=== PATIENT | female | born 1980 | race Asian ===

== ENCOUNTER 2019-12-20 23:18 | Emergency (ER) | payer OTHER ==
--- NOTE | 2019-12-21 00:39 | ED ---
- HPI Summary HPI Summary: Patient with history of 10 weeks by home test complains of intermittent mild bright red vaginal bleeding starting 2 hours ago. Denies pain , fever, N/V, any other symptoms or injury. First appointment with [facility] as this Friday. Medical history is none. - History of Current Complaint Chief Complaint: EDOBProblems Stated Complaint: PREG/BLEEDING PER PT Time Seen by Provider: 12/21/19 00:31 Hx Obtained From: Patient Onset/Duration: Started Hours Ago Timing: Intermittent, Lasting Minutes Current Severity: None Pain Intensity: 0 Location of Pain: None Aggravating Factors: Nothing Associated Signs and Symptoms: Positive: Vaginal Bleeding or Discharge - Allergies/Home Medications Allergies/Adverse Reactions: Allergies Allergy/AdvReac Type Severity Reaction Status Date / Time No Known Allergies Allergy Verified 12/20/19 23:23 Home Medications: Home Medications Pnv No.95/Ferrous Fum/Folic AC [ Caplet] 1 tab PO DAILY 12/21/19 [ History Confirmed 12/21/19] PMH/Surg Hx/FS Hx/Imm Hx Endocrine/Hematology History: Denies: Hx Anticoagulant Therapy Cardiovascular History: Denies: Hx Pacemaker/ICD Respiratory History: Denies: Hx Chronic Obstructive Pulmonary Disease (COPD) History: Denies: Hx Dialysis Sensory History: Denies: Hx Eye Prosthesis Opthamlomology History: Denies: Hx Legally Blind EENT History: Denies: Hx Deafness Neurological History: Denies: Hx Dementia Infectious Disease History: No Infectious Disease History: Denies: Traveled Outside the [place] in Last 30 Days - Family History Known Family History: Positive: Non-Contributory - Social History Alcohol Use: None Hx Substance Use: No Hx Tobacco Use: No Review of Systems Constitutional: Negative Eyes: Negative ENT: Negative Cardiovascular: Negative Respiratory: Negative Gastrointestinal: Negative Positive: other Musculoskeletal: Negative Skin: Negative Neurological/Mental Status: Negative Psychological: Normal All Other Systems Reviewed And Are Negative: Yes Physical Exam - Physical Exam Triage Information Reviewed: Yes Vital Signs Reviewed: Yes Appearance: Positive: Well-Appearing Skin: Positive: Warm Head/Face: Positive: Normal Head/Face Inspection Eyes: Positive: Normal Neck: Positive: Supple Respiratory/Lung Sounds: Positive: Clear to Auscultation Cardiovascular: Positive: Normal Abdomen Description: Positive: Nontender Musculoskeletal: Positive: Normal Neurological: Positive: Normal Psychiatric: Positive: Normal AVPU Assessment: Alert - Livier Coma Scale Eye: 4 - Spontaneous Motor: 6 - Obeys Commands Verbal: 5 - Oriented Coma Scale Total: 15 Procedures - Sedation Patient Received Moderate/Deep Sedation with Procedure: No Diagnostics - Vital Signs Vital Signs Temp Pulse Resp BP Pulse Ox 12/20/19 23:21 98.5 F 75 15 120/67 100 - Laboratory Result Diagrams: 12/21/19 00:51 12/21/19 00:51 Lab Statement: Any lab studies that have been ordered have been reviewed, and results considered in the medical decision making process. Course/Dx - Course Course Of Treatment: Patient with history of 10 weeks by home test complains of intermittent mild bright red vaginal bleeding starting 2 hours ago. Denies pain, fever, N/V, any other symptoms or injury. First appointment with [facility] as this Friday. Medical history is none. . Vital signs within normal limits. - Diagnoses Provider Diagnoses: , Vaginal bleeding Discharge ED - Sign-Out/Discharge Documenting (check all that apply): Patient Departure - Discharge Plan Condition: Stable Disposition: HOME Patient Education Materials: (ED) Referrals: No Primary Care Phys,NOPCP [Primary Care Provider] - Additional Instructions: Follow-up with [facility] at your appointment this Friday in 3 days for repeat hCG and further evaluation of . Return to the ED for any new or worsening symptoms. - Billing Disposition and Condition Condition: STABLE Disposition: Home
[2019-12-21 01:00] LABS: ABS Basophils 0.1 10^3/ul (0-0.2); ABS Lymphocytes 2.1 10^3/ul (1.0-4.8); ABS Monocytes 0.7 10^3/ul (0-0.8); Eosinophil % 0.3 %; Hematocrit 30 % (35-47); Hemoglobin 10.8 g/dL (12.0-16.0); Lymphocyte % 19.1 %; Mean Corpuscular HGB Conc 35 g/dL (31-36); Mean Corpuscular Hemoglobin 34 pg (27-31); Mean Corpuscular Volume 95 fL (80-97); Mean Platelet Volume 7.4 fL (7.4-10.4); Platelet Count 281 10^3/uL (150-450); Red Cell Distribution Width 13 % (10-15); White Blood Count 10.8 10^3/uL (3.5-10.8)
[2019-12-21 01:18] LABS: Albumin 4.1 g/dL (3.2-5.2); Albumin/Globulin Ratio 1.5 (1-3); BUN/Creatinine Ratio 28.6 (8-20); C Reactive Protein 3.74 mg/L (<8.01); Calcium 9.4 mg/dL (8.6-10.3); EGFR African American 147.4 (>60); EGFR Non-African American 121.8 (>60); Globulin 2.7 g/dL (2-4); Potassium 3.9 mmol/L (3.5-5.0); Total Bilirubin 0.3 mg/dL (0.2-1.0); Total Protein 6.8 g/dL (6.4-8.9)
[2019-12-21 01:54] VITALS: BP 119/78
== END 2019-12-21 01:53 | disposition home or self-care (01) ==
LOC: ED 23:18
DX: O46.91 Antepartum hemorrhage, unspecified, first trimester (principal); Z3A.10 10 weeks gestation of pregnancy
CPT/HCPCS: 36415; 76801; 80053; 84702; 85025; 86140; 99282

== ENCOUNTER 2020-07-12 08:04 | Inpatient (IN) ==
[2020-07-12] MEDS ORDERED: Lactated Ringers 1000 ml BAG 1,000 ML IV ONE (08:54)
[2020-07-12] MEDS ORDERED: Oxytocin in LR 20 UNITS/1,000 ML BAG IVPB SCH ×2 (09:00→11:00)
[2020-07-12] MEDS ORDERED: Lactated Ringers 1000 ml BAG 1,000 ML IV SCH ×2 (09:00→20:00)
[2020-07-12 09:51] LABS: Urine Benzodiazepine Screen None Detected (None Detect); Urine Cannabinoids Screen None Detected (None Detect); Urine Opiates Screen None Detected (None Detect)
[2020-07-12 11:07] LABS: ABS Lymphocytes 1.3 10^3/ul (1.0-4.8); ABS Monocytes 0.6 10^3/ul (0-0.8); ABS Neutrophils 5.1 10^3/ul (1.5-7.7); Eosinophil % 0.3 %; Hematocrit 29 % (35-47); Hemoglobin 10.2 g/dL (12.0-16.0); Lymphocyte % 18.7 %; Mean Corpuscular HGB Conc 35 g/dL (31-36); Mean Corpuscular Hemoglobin 35 pg (27-31); Mean Corpuscular Volume 101 fL (80-97); Mean Platelet Volume 9.2 fL (7.4-10.4); Platelet Count 190 10^3/uL (150-450); Red Cell Distribution Width 13 % (10-15); White Blood Count 7.1 10^3/uL (3.5-10.8)
[2020-07-12 17:46] LABS: ABS Lymphocytes 0.9 10^3/ul (1.0-4.8); ABS Monocytes 0.5 10^3/ul (0-0.8); ABS Neutrophils 11.1 10^3/ul (1.5-7.7); Hematocrit 30 % (35-47); Hemoglobin 10.3 g/dL (12.0-16.0); Lymphocyte % 7.3 %; Mean Corpuscular HGB Conc 35 g/dL (31-36); Mean Corpuscular Hemoglobin 35 pg (27-31); Mean Corpuscular Volume 100 fL (80-97); Mean Platelet Volume 9.1 fL (7.4-10.4); Platelet Count 177 10^3/uL (150-450); Red Blood Count 2.98 10^6 /uL (3.70-4.87); Red Cell Distribution Width 13 % (10-15); White Blood Count 12.5 10^3/uL (3.5-10.8)
[2020-07-12 17:52] LABS: Activated Partial Thrombo Time 24.5 seconds (26.0-38.0); INR 0.88 (0.82-1.09)
[2020-07-12 17:59] LABS: Platelet Count 177 10^3/ul (150-450)
[2020-07-12 18:07] LABS: Fibrinogen 358.8 mg/dL (110.8-404.3)
[2020-07-12] MEDS ORDERED: Lidocaine 1% VIAL 10 MG/ML VIAL ONE (18:30)
[2020-07-12 18:34] LABS: Schistocytes ABSENT
[2020-07-12] MEDS ORDERED: Witch Hazel PAD JAR ONE (19:10)
[2020-07-12] MEDS ORDERED: Dibucaine 1% OINT 28.35 GM TUBE ONE (19:10)
[2020-07-12] MEDS ORDERED: Glycerin ADULT 2.4 gm SUPP PR PRN (19:34)
[2020-07-12] MEDS ORDERED: Witch Hazel PAD JAR TOPICAL PRN (19:34)
[2020-07-12] MEDS ORDERED: Dibucaine 1% OINT 28.35 GM TUBE PR PRN (19:34)
[2020-07-13 09:34] LABS: ABS Basophils 0.1 10^3/ul (0-0.2); ABS Lymphocytes 1.5 10^3/ul (1.0-4.8); ABS Monocytes 0.6 10^3/ul (0-0.8); ABS Neutrophils 10.3 10^3/ul (1.5-7.7); Eosinophil % 0.1 %; Hematocrit 29 % (35-47); Hemoglobin 9.9 g/dL (12.0-16.0); Lymphocyte % 12.3 %; Mean Corpuscular HGB Conc 35 g/dL (31-36); Mean Corpuscular Hemoglobin 36 pg (27-31); Mean Corpuscular Volume 103 fL (80-97); Mean Platelet Volume 8.6 fL (7.4-10.4); Platelet Count 164 10^3/uL (150-450); Red Blood Count 2.78 10^6 /uL (3.70-4.87); Red Cell Distribution Width 13 % (10-15); White Blood Count 12.6 10^3/uL (3.5-10.8)
[2020-07-14 07:54] VITALS: BP 95/60
[2020-07-14] MEDS ORDERED: Influenza VAC *QUAD* 2020-21* 0.5 ML SYRINGE IM ONE (09:00)
== END 2020-07-14 11:23 | disposition home or self-care (01) | DRG 560 ==
LOC: MCHOBOUT 08:04 → MCHOB 08:55
PROVIDERS: ADMIT Obstetrics & Gynecology; ATTEND Obstetrics & Gynecology